=== PATIENT | male | born 1965 | race Caucasian/White ===

== ENCOUNTER 2017-02-25 14:00 | Emergency (ER) | payer OTHER ==
[~2017-02-25] VITALS: Ht 177.8 cm; Wt 75.0 kg
[2017-02-25 15:02] LABS: AMPHETAMINE SCREEN, URINE Positive (Negative); BARBITURATE SCREEN, URINE Negative (Negative); BENZODIAZEPINE SCREEN, URINE Negative (Negative); CANNABINOID SCREEN, URINE Positive (Negative); COCAINE SCREEN, URINE Negative (Negative); METHADONE SCREEN, URINE Negative (Negative); OPIATE SCREEN, URINE Negative (Negative)
[2017-02-25 15:38] VITALS: BP 165/138
== END 2017-02-25 16:34 | disposition home or self-care (01) ==
LOC: ED 16:28
DX: F15.150 Other stimulant abuse with stimulant-induced psychotic disorder with delusions (principal); F12.10 Cannabis abuse, uncomplicated; F41.9 Anxiety disorder, unspecified
CPT/HCPCS: 80307; 99284

== ENCOUNTER 2020-09-17 11:27 | Emergency (ER) | payer OTHER ==
[~2020-09-17] VITALS: Ht 185.4 cm; Wt 89.0 kg
--- NOTE | 2020-09-17 11:49 | NUR ---
PT IN CUSTODY OF POLICE. PT WITH STABLE VS. PT SEEN BY VIRGIE CORADO. AWAITING NEW ORDERS AT THIS TIME.
[2020-09-17] MEDS ORDERED: LORazepam 1MG TABLET ONE (11:52)
--- NOTE | 2020-09-17 11:54 | NUR ---
pt medicated per mar.
[2020-09-17] MEDS ORDERED: LORazepam 1MG TABLET PO ONE (12:00)
[2020-09-17 12:33] LABS: BASOPHILS % (AUTO) 1 % (0-1); EOSINOPHILS % (AUTO) 0 % (1-7); LYMPHOCYTES % (AUTO) 20 % (22-44); MEAN CORPUSCULAR HEMOGLOBIN 32.5 pg (27.5-34.5); MEAN CORPUSCULAR HGB CONC 34.4 g/dL (33.2-36.2); MEAN PLATELET VOLUME 9.3 fL (7.4-10.4); MONOCYTES % (AUTO) 8 % (2-9); NEUTROPHILS % (AUTO) 71 % (42-75); PLATELET COUNT 236 x10^3/uL (130-400); RED BLOOD COUNT 4.77 x10^6/uL (4.38-5.82); RED CELL DISTRIBUTION WIDTH 13.6 % (9.4-14.8)
[2020-09-17 12:39] LABS: ALANINE AMINOTRANSFERASE 17 U/L (12-78); ANION GAP 7 mmol/L (5-15); CALCIUM 8.7 mg/dL (8.5-10.1); CHLORIDE 107 mmol/L (98-107); CREATININE 1.03 mg/dL (0.7-1.3)
[2020-09-17 12:41] LABS: AMPHETAMINE SCREEN, URINE Positive (Negative); BARBITURATE SCREEN, URINE Negative (Negative); BENZODIAZEPINE SCREEN, URINE Negative (Negative); CANNABINOID SCREEN, URINE Positive (Negative); COCAINE SCREEN, URINE Negative (Negative); METHADONE SCREEN, URINE Negative (Negative); OPIATE SCREEN, URINE Negative (Negative)
[2020-09-17 12:44] LABS: ALKALINE PHOSPHATASE 88 U/L (45-117); BILIRUBIN,TOTAL 0.7 mg/dL (0.2-1.0); TOTAL PROTEIN 7.8 g/dL (6.4-8.2); TROPONIN I < 0.015 ng/mL (0.000-0.045)
--- NOTE | 2020-09-17 13:05 | NUR ---
pt d/c with d/c summary in care of law enforcement. pt still htn, but with history of htn. pt vs discussed with Bobbi CORADO, prior to pt d/c, and erp okay with pt d/c at this time. pt ambulates with steady gait in handcuffs for d/c to half-way.
[2020-09-17 13:06] VITALS: BP 174/114
== END 2020-09-17 13:18 | disposition home or self-care (01) ==
LOC: ED 13:14
DX: R07.89 Other chest pain (principal); F12.10 Cannabis abuse, uncomplicated; F15.10 Other stimulant abuse, uncomplicated; I10 Essential (primary) hypertension; I44.7 Left bundle-branch block, unspecified
CPT/HCPCS: 36415; 71045; 80053; 80307; 84484; 85025; 93005; 99285